=== PATIENT | female | born 1970 | race Caucasian/White ===

== ENCOUNTER → 2016-08-31 | Outpatient (CLI) | payer OTHER, BC ==
--- NOTE | 2016-08-31 11:21 | DIAGNOSTIC IMAGING REPORT ---
PROCEDURE: US SOFT TISSUE THYR/NECK/HEAD INDICATION: DYSPHAGIA TECHNIQUE: Mclaughlin scale and color Doppler sonographic images of the thyroid gland were obtained. COMPARISON: Thyroid ultrasound 06/29/2014 FINDINGS: RIGHT LOBE: Measures 4.1 x 1.8 x 1.7 cm with a homogeneous echo structure. LEFT LOBE: Measures 3.7 x 1.5 x 1.7 cm with a homogeneous echo structure ISTHMUS: Measures 2.8 mm. Small nonspecific lymph nodes in the left lateral aspect of the neck with normal morphology. IMPRESSION: 1. Normal thyroid ultrasound.
== END ==
LOC: US SRH 09:32
DX: R13.10 Dysphagia, unspecified (principal)